=== PATIENT | female | born 1985 | race Caucasian/White ===

== ENCOUNTER 2016-10-04 17:10 | Emergency (ER) | payer OTHER ==
[2016-10-04 17:51] LABS: BASOPHIL % 0.3 % (0-2); PLATELET COUNT 427 x10^3mcL (130-400); RED CELL DISTRIBUTION WIDTH 16.5 % (11.5-14.5)
[2016-10-04 18:08] LABS: CALCIUM 7.9 mg/dL (8.5-10.1); CARBON DIOXIDE 27.3 mmol/L (21-32); CHLORIDE SERUM 107 mmol/L (98-107); CREATININE SERUM 0.9 mg/dL (0.6-1.0); GFR1 > 60 mL/min; GLUCOSE SERUM 111 mg/dL (74-106); POTASSIUM SERUM 3.5 mmol/L (3.5-5.1); SODIUM SERUM 141 mmol/L (136-145)
[2016-10-04 18:12] LABS: ALKALINE PHOSPHATASE 59 U/L (46-116); ALT/SGPT 19 U/L (14-59); AST/SGOT 19 U/L (15-37); BILIRUBIN TOTAL 0.3 mg/dL (0.20-1.00); TOTAL PROTEIN, SERUM 6.9 g/dL (6.4-8.2)
[2016-10-04 18:15] LABS: ALBUMIN 3.3 g/dL (3.4-5.0)
[2016-10-04 19:04] VITALS: BP 155/101
== END 2016-10-04 19:04 | disposition home or self-care (01) ==
LOC: ED 17:10
PROVIDERS: Emergency Medicine
DX: N92.6 Irregular menstruation, unspecified (principal); F17.200 Nicotine dependence, unspecified, uncomplicated

== ENCOUNTER 2016-10-11 19:19 | Emergency (ER) | payer OTHER ==
[2016-10-11 20:21] LABS: microscopic required? YES; urine erythrocyte 3+ (NEGATIVE)
[2016-10-11 20:23] LABS: UA SPECIFIC GRAVITY 1.025 (1.005-1.035)
[2016-10-11 20:31] LABS: BASOPHIL % 0.3 % (0-2)
[2016-10-11 20:32] LABS: PLATELET COUNT 449 x10^3mcL (130-400); RED CELL DISTRIBUTION WIDTH 15.2 % (11.5-14.5)
[2016-10-11 20:33] LABS: CALCIUM 8.7 mg/dL (8.5-10.1); CARBON DIOXIDE 25.8 mmol/L (21-32); CHLORIDE SERUM 101 mmol/L (98-107); CREATININE SERUM 0.9 mg/dL (0.6-1.0); GFR1 > 60 mL/min; GLUCOSE SERUM 118 mg/dL (74-106); SODIUM SERUM 138 mmol/L (136-145)
[2016-10-11 20:35] LABS: AMPHETAMINE QUAL UR NONE DETECTED (NEG <=1000)
[2016-10-11 20:38] LABS: ALBUMIN 3.5 g/dL (3.4-5.0); ALKALINE PHOSPHATASE 59 U/L (46-116); ALT/SGPT 12 U/L (14-59); AST/SGOT 16 U/L (15-37); BILIRUBIN TOTAL 0.29 mg/dL (0.20-1.00); LIPASE 239 IU/L (73-393); TOTAL PROTEIN, SERUM 7.2 g/dL (6.4-8.2)
[2016-10-11 23:01] VITALS: BP 138/94
== END 2016-10-11 23:01 | disposition home or self-care (01) ==
LOC: ED 19:19
PROVIDERS: Emergency Medicine
DX: R51 Headache (principal); I10 Essential (primary) hypertension; N39.0 Urinary tract infection, site not specified; J01.90 Acute sinusitis, unspecified
CPT/HCPCS: 83880; J0696; J2405; J3010; J7030; Q0092

== ENCOUNTER 2016-10-23 20:58 | Emergency (ER) | payer OTHER ==
[2016-10-23 22:43] LABS: BASOPHIL % 0.4 % (0-2)
[2016-10-23 22:55] LABS: RED CELL DISTRIBUTION WIDTH 17.1 % (11.5-14.5)
[2016-10-23 23:08] LABS: PLATELET COUNT 502 x10^3mcL (130-400)
[2016-10-24 00:06] VITALS: BP 141/88
== END 2016-10-24 00:06 | disposition home or self-care (01) ==
LOC: ED 20:58
PROVIDERS: Emergency Medicine
DX: I10 Essential (primary) hypertension (principal); D64.9 Anemia, unspecified; F41.9 Anxiety disorder, unspecified; Z79.899 Other long term (current) drug therapy
CPT/HCPCS: 36415

== ENCOUNTER 2017-04-12 12:07 | Emergency (ER) | payer OTHER ==
[~2017-04-12] VITALS: Ht 154.9 cm; Wt 45.4 kg
[2017-04-12 13:02] LABS: BASOPHIL % 0.4 % (0-2)
[2017-04-12 13:03] LABS: PLATELET COUNT 472 x10^3mcL (130-400); RED CELL DISTRIBUTION WIDTH 17.2 % (11.5-14.5)
[2017-04-12 13:12] LABS: CALCIUM 8.8 mg/dL (8.5-10.1); CARBON DIOXIDE 25.1 mmol/L (21-32); CHLORIDE SERUM 105 mmol/L (98-107); CREATININE SERUM 1.1 mg/dL (0.6-1.0); GFR1 > 60 mL/min; GLUCOSE SERUM 131 mg/dL (74-106); POTASSIUM SERUM 3.4 mmol/L (3.5-5.1); SODIUM SERUM 142 mmol/L (136-145)
[2017-04-12 13:22] LABS: ALKALINE PHOSPHATASE 104 U/L (46-116); ALT/SGPT 12 U/L (14-59); AST/SGOT 16 U/L (15-37); T4(THYROXINE) 4.7 ug/dL (4.7-13.3); TOTAL PROTEIN, SERUM 7.1 g/dL (6.4-8.2)
[2017-04-12 13:23] LABS: ALBUMIN 3.1 g/dL (3.4-5.0)
[2017-04-12 14:40] LABS: AMPHETAMINE QUAL UR NONE DETECTED (NEG <=1000)
[2017-04-12 16:12] VITALS: BP 127/74
== END 2017-04-12 16:12 | disposition home or self-care (01) ==
LOC: ED 12:07
PROVIDERS: Emergency Medicine
DX: I47.1 Supraventricular tachycardia (principal); F41.9 Anxiety disorder, unspecified; I10 Essential (primary) hypertension
CPT/HCPCS: 83880; J0153; Q0092

== ENCOUNTER 2017-07-02 20:11 | Emergency (ER) | payer OTHER ==
[~2017-07-02] VITALS: Ht 154.9 cm; Wt 44.0 kg
[2017-07-02 20:58] VITALS: Ht 154.9 cm; Wt 44.0 kg
[2017-07-02 22:24] VITALS: BP 130/90
== END 2017-07-02 22:24 | disposition home or self-care (01) ==
LOC: ED 20:11
DX: N39.0 Urinary tract infection, site not specified (principal); M79.642 Pain in left hand; M79.641 Pain in right hand; I10 Essential (primary) hypertension; F41.9 Anxiety disorder, unspecified

== ENCOUNTER 2017-08-13 10:50 | Emergency (ER) | payer OTHER ==
[~2017-08-13] VITALS: Ht 154.9 cm; Wt 42.4 kg
[2017-08-13 10:59] VITALS: Ht 154.9 cm; Wt 42.4 kg
[2017-08-13 12:05] LABS: CALCIUM 8.4 mg/dL (8.5-10.1); CARBON DIOXIDE 26.8 mmol/L (21-32); CHLORIDE SERUM 96 mmol/L (98-107); GFR1 > 60 mL/min; GLUCOSE SERUM 152 mg/dL (74-106); POTASSIUM SERUM 3.6 mmol/L (3.5-5.1); SODIUM SERUM 133 mmol/L (136-145)
[2017-08-13 12:10] LABS: microscopic required? YES; urine erythrocyte 2+ (NEGATIVE)
[2017-08-13 12:17] LABS: ALKALINE PHOSPHATASE 94 U/L (46-116); ALT/SGPT 16 U/L (14-59); AST/SGOT 15 U/L (15-37); BILIRUBIN TOTAL 0.41 mg/dL (0.20-1.00); TOTAL PROTEIN, SERUM 7.5 g/dL (6.4-8.2)
[2017-08-13 12:19] LABS: T4(THYROXINE) 4.6 ug/dL (4.7-13.3)
[2017-08-13 13:30] LABS: BASOPHIL % 0.2 % (0-2); PLATELET COUNT 331 x10^3mcL (130-400); RED CELL DISTRIBUTION WIDTH 17.3 % (11.5-14.5)
[2017-08-13 14:20] VITALS: BP 110/60
== END 2017-08-13 14:20 | disposition home or self-care (01) ==
LOC: ED 10:50
PROVIDERS: Emergency Medicine
DX: N39.0 Urinary tract infection, site not specified (principal); D72.829 Elevated white blood cell count, unspecified; I10 Essential (primary) hypertension
CPT/HCPCS: 83880; J1956; Q0092